=== PATIENT | male | born 1980 ===

== ENCOUNTER 2021-04-06 19:07 | Inpatient (IN) | payer OTHER ==
[~2021-04-06] VITALS: Ht 180.3 cm; Wt 75.5 kg
--- NOTE | 2021-04-06 19:20 | NUR ---
CODE [email or web address], [email or web address]
[2021-04-06 19:34] LABS: BASOPHILS % (AUTO) 1 % (0-1); EOSINOPHILS % (AUTO) 2 % (1-7); LYMPHOCYTES % (AUTO) 51 % (22-44); MEAN CORPUSCULAR HEMOGLOBIN 31.8 pg (27.5-34.5); MEAN CORPUSCULAR HGB CONC 35.2 g/dL (33.2-36.2); MEAN PLATELET VOLUME 9.1 fL (7.4-10.4); MONOCYTES % (AUTO) 12 % (2-9); NEUTROPHILS % (AUTO) 35 % (42-75); PLATELET COUNT 209 x10^3/uL (130-400); RED BLOOD COUNT 4.37 x10^6/uL (4.38-5.82); RED CELL DISTRIBUTION WIDTH 13.1 % (9.4-14.8)
[2021-04-06] MEDS ORDERED: DIVA500T4 PO (19:45)
[2021-04-06] MEDS ORDERED: RIVA10TA2 PO (19:46)
[2021-04-06 19:47] LABS: INTERNATIONAL NORMALIZED RATIO 1.04 (0.93-1.1); PROTHROMBIN TIME 11.1 Seconds (9.6-11.5)
[2021-04-06] MEDS ORDERED: METF500T17 PO (19:47)
[2021-04-06] MEDS ORDERED: METO-282 PO (19:48)
[2021-04-06] MEDS ORDERED: LISI-606 PO (19:48)
--- NOTE | 2021-04-06 19:49 | NUR ---
VISH HILL WITH [facility] CALLED, PT WITH LEFT ARM AND LEG WEAKNESS AND RIGFHT SIDE FACE DROOP, PT SEEN BY DR DESHPANDE IN [place] AND STRAIGHT TO CT, PT BACK FROM CT, PT SCORED 8 ON NIH SCALE, PT ANSWERING QUESTIONS APPROPIATLY, PTS LEFT MOUTH DROOP RESOLVRED AND PT RAISES LEFT LEG AND HELD CUP WITH LEFT HAND AND DRANK WATER, VSS PT IN A FIB RATE CONTROLED
--- NOTE | 2021-04-06 19:57 | NUR ---
DR DESHPANDE AT BED SIDE WITH AND DISCUSSING POC
--- NOTE | 2021-04-06 20:35 | NUR ---
report to ilda
[2021-04-06] MEDS ORDERED: LABETALOL 5MG/ML, 20ML IV PRN (21:00)
[2021-04-06] MEDS ORDERED: ACETAMINOPHEN 650 MG/20.3 ML UDC PO PRN (21:00)
[2021-04-06] MEDS ORDERED: POLYETHYLENE GLYCOL 17 GM PACKET PO PRN (21:00)
[2021-04-06] MEDS ORDERED: OXYcodone 5 MG/5 ML ORAL.SOL UDC PO PRN (21:00)
[2021-04-06] MEDS ORDERED: MELATONIN 5 MG TABLET PO PRN (21:00)
[2021-04-06] MEDS ORDERED: ONDANSETRON 4 MG TABLET PO PRN (21:00)
[2021-04-06] MEDS ORDERED: SODIUM CHLORIDE FLUSH 10ML SYR IVF SCH (21:00)
[2021-04-06] MEDS ORDERED: ATORVASTATIN 80 MG TABLET PO SCH (21:00)
[2021-04-06] MEDS ORDERED: DEXTROSE 50%, 50ML SYRINGE IVPush PRN (21:00)
[2021-04-06] MEDS ORDERED: GUAIFENESIN/DM 200-20MG, 10ML UDC PO PRN (21:00)
[2021-04-06] MEDS ORDERED: GLUCAGON 1 MG IM PRN (21:00)
[2021-04-06] MEDS ORDERED: DEXTROSE 4 GM TAB.CHEW PO PRN (21:00)
[2021-04-06] MEDS ORDERED: ATORVASTATIN 80 MG TABLET ONE (22:27)
--- NOTE | 2021-04-06 22:30 | NUR ---
PATIENT PLACED ON INPATIENT BED. PASSED SWALLOW EXAM. PATIENT REQUESTING FOOD BUT COFFEE CART CLOSED AT THIS TIME. RN PROVIDED PATIENT WITH CRACKERS THIS IS THE ONLY THING AVALIABLE AT THIS TIME. AT BEDSIDE AND WAS TOLD SHE CAN BRING HIM FOOD IF HE WOULD LIKE. PROVIDED PATIENT WITH NEW URINAL. CALL LOWERY IN REACH. VSS. DENIES ANY NEEDS AT THIS TIME. WILL CONTINUE TO MONITOR.
[2021-04-06] MEDS: INSULIN LISPRO 100 UNITS/ML, PEN SQ-INSULIN SCH (22:35)
[2021-04-07] MEDS ORDERED: OMNIPAQUE 350 MG/ML, 100ML BOTTLE ONE (00:03)
--- NOTE | 2021-04-07 03:13 | NUR ---
PATIENT RESTING ON INPATIENT BED WITH EYES CLOSED. NAD. PATIENT REMAINS IN [facility] ROOM. VSS. CALL LOWERY IN REACH. BED IN LOW POSITION. WILL CONTINUE TO MONITOR.
[2021-04-07 06:27] LABS: BASOPHILS % (AUTO) 0 % (0-1); EOSINOPHILS % (AUTO) 3 % (1-7); LYMPHOCYTES % (AUTO) 50 % (22-44); MEAN CORPUSCULAR HEMOGLOBIN 31.7 pg (27.5-34.5); MEAN CORPUSCULAR HGB CONC 34.8 g/dL (33.2-36.2); MEAN PLATELET VOLUME 9.3 fL (7.4-10.4); MONOCYTES % (AUTO) 12 % (2-9); NEUTROPHILS % (AUTO) 35 % (42-75); PLATELET COUNT 212 x10^3/uL (130-400); RED BLOOD COUNT 4.36 x10^6/uL (4.38-5.82); RED CELL DISTRIBUTION WIDTH 13.1 % (9.4-14.8)
[2021-04-07 06:33] LABS: CHLORIDE 108 mmol/L (98-107)
[2021-04-07 06:45] LABS: ALANINE AMINOTRANSFERASE 28 U/L (12-78); ALBUMIN 3.4 g/dL (3.4-5.0); ALKALINE PHOSPHATASE 37 U/L (45-117); ANION GAP 7 mmol/L (5-15); BILIRUBIN,TOTAL 0.5 mg/dL (0.2-1.0); CALCIUM 8.5 mg/dL (8.5-10.1); CHOL/HDL RATIO 5.1; CHOLESTEROL, TOTAL 154 mg/dL (140-239); CREATININE 0.86 mg/dL (0.7-1.3); HDL CHOL % 19 % (26-37); HDL CHOLESTEROL (DIRECT) 30 mg/dL (40-60); LDL CHOLESTEROL,CALCULATED 87 mg/dL (54-169); LDL/HDL RATIO 2.9 (0.5-3.0); TRIGLYCERIDES 184 mg/dL (50-200); VLDL CHOLESTEROL 37 mg/dL (0-25)
--- NOTE | 2021-04-07 06:54 | NUR ---
REPORT GIVEN TO JIN TERRAZAS.
--- NOTE | 2021-04-07 08:47 | NUR ---
MEAL TRAY PROVIDED. ASSESSENT NOTED. NO NEURO DEFICITS NOTED. PT C/O RIGHT LOWER JAW AND MOLAR PAIN. VSS, CALL LIGHT W/I REACH. NO NEEDS AT THIS TIME.
--- NOTE | 2021-04-07 08:47 | NUR ---
LATE ENTRY FOR 0700, SBAR RPT REC'D AND ASSUMED PT CARE. PT SLEEPING, RESP EVEN NON-LABORED.
[2021-04-07] MEDS ORDERED: ASPIRIN 81 MG TABLET CHEW ONE (08:52)
[2021-04-07] MEDS: INSULIN LISPRO 100 UNITS/ML, PEN SQ-INSULIN SCH ×2 (08:55→12:45)
[2021-04-07] MEDS ORDERED: ASPIRIN 81 MG TABLET CHEW PO/NG SCH (09:00)
--- NOTE | 2021-04-07 09:46 | NUR ---
PT ATE 100% OF BREAFAST. PT OOB AND AMBULATED IN ROOM WITH RN STANDBY. PT WITH STEADY ALBIET SLOW GAIT. PT VERBALIZES "THE LEFT LEG STILL FEELS A LITTLE OFF" PT RTD TO BED W/O INCIDENT. CALL LIGHT W/I REACH, NO NEEDS AT THIS TIME.
--- NOTE | 2021-04-07 11:25 | NUR ---
PT ASKING ABOUT HIS DAILY MEDICATIONS. NO HOME MEDS HAVE BEEN ORDERED. VERIFIED MEDICATIONS WITH PT. ATTEMPTED TO CONTACT DR ROSS, LEFT VM
--- NOTE | 2021-04-07 11:28 | NUR ---
DR ROSS RTD CALL. ON HER WAY TO SEE PT AND WILL ORDER MEDS.
[2021-04-07] MEDS ORDERED: LISI-167 PO (11:31)
[2021-04-07] MEDS ORDERED: METO25TA35 PO (11:31)
[2021-04-07] MEDS ORDERED: RIVA20TA PO (11:31)
[2021-04-07] MEDS ORDERED: METF500T17 PO (11:31)
[2021-04-07] MEDS ORDERED: LISINOPRIL 10 MG TABLET PO SCH (12:00)
[2021-04-07] MEDS ORDERED: RIVAROXABAN 20 MG TABLET PO SCH (12:00)
[2021-04-07] MEDS ORDERED: METOPROLOL TARTRATE 25 MG TAB PO SCH (12:00)
[2021-04-07] MEDS ORDERED: LISINOPRIL 10 MG TABLET ONE (12:36)
[2021-04-07] MEDS ORDERED: RIVAROXABAN 20 MG TABLET ONE (12:36)
[2021-04-07] MEDS ORDERED: METOPROLOL TARTRATE 25 MG TAB ONE (12:36)
--- NOTE | 2021-04-07 12:46 | NUR ---
NEURO POPE NOEL AT BEDSIDE. PT ASSESSMENT REVIEWED. PLAN FOR MRI TODAY. IF NORMAL PT TO BE D/C HOME. PT AWARE OF PLAN. MED NOTED. VSS. MEAL TRAY HAS BEEN ORDERED. CALL LIGHT W/I REACH
[2021-04-07 12:47] VITALS: BP 121/72
--- NOTE | 2021-04-07 14:11 | NUR ---
ASSUMED CARE FROM JIN TERRAZAS. PATIENT PROVIDED FOOD. PATIENT HAS NOT NEEDS AT THIS TIME, CALL LIGHT IN REACH.
--- NOTE | 2021-04-07 15:50 | NUR ---
PATIENT HAS NO NEEDS AT THIS TIME, PATIENT ATTEMPTING TO REST, CALL LIGHT IN REACH, PATIENT WAITING MRI SCAN.
--- NOTE | 2021-04-07 17:46 | NUR ---
PATIENT IN MRI
[2021-04-07] MEDS ORDERED: ATOR-2 PO (18:53)
[2021-04-07] MEDS ORDERED: DIVALPROEX 500 MG TAB.ER.24H PO SCH (21:00)
== END 2021-04-07 19:49 | disposition home or self-care (01) | DRG 66 ==
LOC: ED 21:02 → EDIP 21:28
PROVIDERS: ADMIT Internal Medicine; ATTEND Hospitalist
DX: I63.9 Cerebral infarction, unspecified (principal); I48.91 Unspecified atrial fibrillation; I10 Essential (primary) hypertension; G40.909 Epilepsy, unspecified, not intractable, without status epilepticus; F19.10 Other psychoactive substance abuse, uncomplicated; R29.810 Facial weakness; Z79.01 Long term (current) use of anticoagulants; Z86.73 Personal history of transient ischemic attack (TIA), and cerebral infarction without residual deficits; Z79.899 Other long term (current) drug therapy
CPT/HCPCS: 36415; 70450; 70496; 70498; 70551; 80047; 80053; 80061; 82962; 85025; 85610; 85730; 93005; 99291; Q9967; 92522-GN